=== PATIENT | male | born 1940 | race Caucasian/White ===

== ENCOUNTER 2023-03-30 13:18 | Outpatient (OUT) | payer OTHER, SELFPAY ==
--- NOTE | 2023-03-30 13:21 | VEIN_ITS ---
Patient: DELMAR ROSALES Exam Date: 03/30/2023 : 1940 Gender:M Ordering : DR REED MORTENSEN M.D. Admission #: [id number] Family : Order #: [id number] CLICK HERE TO VIEW EXAM RADIOLOGY REPORT PROCEDURE: FACILITY [facility] VEIN CENTER - OFFICE VISIT INITIAL COMPARISON: None. PROGRESS NOTES: [age] year old male who presents with a 3 year history of bulging dilated veins, discolored veins, leg swelling, pain, cramping, edema. The patient's right leg symptoms are worse than the left. There has been a progression of symptoms over the past 3 years. This increases with prolonged leg dependency. The patient describes an improvement with rest, elevation, exercise, and support stockings. The patient denies any signs and symptoms to suggest arterial ischemia. The patient describes a family history gastric ulcer, atrial dilation, supraventricular tachycardia. The patient has drinking and smoking history of: Occasional alcohol consumption. No tobacco use. Patient has a past medical history significant for asthma, prostate disease. The patient denies a history of deep venous thrombus or pulmonary embolus. See separate history and physical for medication list. No prior treatment for varicose or spider veins. Current use of compression stockings. After review of nurse notes, history and physical exam I discussed at length the pathophysiology of venous hypertension and possible treatments, therapies and strategies available. We discussed at length the importance of elevating the lower extremities above the level of the heart, increased physical activity and compression stocking use. Ultrasound venous reflux study performed today was discussed at length with the patient. The report demonstrates abnormally dilated and incompetent great saphenous veins bilaterally and right small saphenous vein along with multiple dilated and incompetent branch saphenous varicosities bilaterally. PHYSICAL EXAM: The right leg demonstrates several prominent varicosities, a few scattered spider veins, no ulceration, mild-moderate edema, no skin discoloration. The left leg demonstrates several varicosities, a few scattered spider veins, no ulceration, mild edema, no skin discoloration. Both thighs, legs and feet were symmetrically warm to the touch. Good posterior tibial and dorsalis pedis pulses were present bilaterally. VEIN/[facility] Facility [facility] IMPRESSION: 1. Bilateral lower extremity venous insufficiency 2. Bilateral lower extremity varicose veins 3. Bilateral lower extremity subcutaneous edema; right greater than left 4. No flow significant arterial disease 5. CEAP: C3, EP, AP, CA PLAN: 1. Continued use of compression stockings 2. Elevated legs and increased physical activity symptomatic relief 3. Endovenous laser ablation of right great saphenous, left great saphenous, right small saphenous veins. 4. Microfoam chemical ablation of incompetent branch saphenous varicosities bilaterally. Nurse notes, history and physical were reviewed and confirmed, see attached forms. The nurse was present throughout the physical exam and consultation Dictated by: Jeffrey Gee M.D. on 03/30/2023 at 15:17 Approved by: Jeffrey Gee M.D. on 03/30/2023 at 15:22
--- NOTE | 2023-03-30 13:22 | VEIN_ITS ---
Patient: DELMAR ROSALES Exam Date: 03/30/2023 : 1940 Gender:M Ordering : DR REED MORTENSEN M.D. Admission #: [id number] Family : Order #: [id number] CLICK HERE TO VIEW EXAM RADIOLOGY REPORT PROCEDURE: VC EXT VENOUS REFLUX ADDIE LMTD COMPARISON: None. INDICATIONS: I83.813 Pain due to varicose veins of bilateral legs TECHNIQUE: Duplex imaging of the lower extremity to assess the deep and superficial venous system for the presence of deep or superficial venous incompetence and to document the location and severity of disease. The study includes evaluation of the great saphenous vein (GSV), anterior accessory saphenous vein (AASV) and small saphenous vein (SSV). Patient scanned in reverse Trendelenburg and standing. FINDINGS: RIGHT LOWER EXTREMITY: Saphenofemoral Junction Reflux: Yes 10.4mm 3.7 sec GSV: Diam (mm) Reflux/ Time (sec) Proximal Thigh 8.0 Yes 1.6 Mid Thigh 11.3 Yes 1.5 Distal Thigh 9.4 Yes 2.6 Prox Calf 7.6 Yes 2.0 Mid Calf 4.3 Yes 1.0 Saphenopopliteal Junction Reflux: 6.6mm Yes 2.4 SSV: Proximal Calf 6.7 Yes 1.0 Mid Calf 3.4 Yes 1.0 AASV: Not present Proximal Thigh Mid Thigh Distal Thigh Thrombi: No acute or chronic thrombus visualized Compressibility: Normal Flow: Normal Preforator: Dist/med calf 2.6mm with 0s reflux. Dist/med calf 3.3mm with 1.2s reflux. Mid/med calf 3.2mm with 1.2s reflux. Tech Note: Incompetent SFJ, GSV, SPJ, and SSV. Patent varicose vein mid/ant calf 5.6mm with 1.2s reflux. Patent varicose vein dist/med thigh 7.0mm with 1.4s reflux. Patent varicose vein mid/med thigh 4.7mm with 1.2s reflux. Patent varicose vein prox/post calf 4.9mm with 1.5s reflux. LEFT LOWER EXTREMITY: Saphenofemoral Junction Reflux: Yes 7.6 mm 2.3 sec GSV: Diam (mm) Reflux/Time (sec) Proximal Thigh 5.5 Yes 2.2 Mid Thigh 5.5 Yes 1.5 Distal Thigh 5.3 Yes 1.2 Prox Calf 5.8 Yes 0.9 Mid Calf 4.7 Yes 1.6 Saphenopopliteal Junction Relux: 2.5 mm Yes 1.2 SSV: Proximal Calf 1.9 No Mid Calf 2.3 No AASV: Not present Proximal Thigh Mid Thigh Distal Thigh Thrombi: No acute or chronic thrombus visualized Compressibility: Normal Flow: Normal [employer]: Dist/med calf 4.3mm with 0.9s reflux. Proximal/med calf 5.0mm with 0s reflux. Mid/med thigh 3.1mm with 1.5s reflux. Tech Note: Incompetent SFJ and GSV. Patent varicose vein dist/med calf 6.4mm with 0.7s reflux. Patent varicose vein mid/med calf 1.9mm with 0.9s reflux. CONCLUSION: 1. Abnormally dilated and incompetent great saphenous vein bilaterally and right small saphenous vein. 2. Consultation for endovenous ablation is recommended. Dictated by: Jeffrey Gee M.D. on 03/30/2023 at 14:45 Approved by: Jeffrey Gee M.D. on 03/30/2023 at 14:47
== END 2023-03-30 13:19 | disposition home or self-care (01) ==
LOC: VC 13:20
PROVIDERS: PCP Radiology Diagnostic Radiology; Visit Provider Radiology Diagnostic Radiology
DX: I83.813 Varicose veins of bilateral lower extremities with pain (principal)
CPT/HCPCS: 93970; G0463

== ENCOUNTER 2023-04-28 13:34 | Outpatient (OUT) | payer OTHER, SELFPAY ==
--- NOTE | 2023-04-28 | VEIN_ITS ---
[address] [address] Patient Name: DELMAR ROSALES MRN: [id number] date: 1940 Sex: M Assigned Patient Location: Current Patient Location: Accession/Order Number: [id number] Exam Date: 04/28/2023 13:45 Report Date: 04/28/2023 15:08 At the request of: REED MORTENSEN Procedure: VC Endovenous Ablation 1VeinRT EXAMINATION: VC Endovenous Ablation 1VeinRT HISTORY: Pain due to varicose veins of bilateral legs I83.813 The risks and benefits of the procedure had been previously discussed, and were rediscussed at length. Informed written consent was obtained. Ramses Vazquez RN and Karen Woods RDMS assisted. Time out procedure was performed. The right lower extremity was prepared and draped in the usual sterile fashion to allow knee flexion in the sterile field. Duplex ultrasound probe was draped in a sterile cover, sterile transmission gel was used. Venous mapping was performed with the areas of dilation and large tributaries marked. The total length was 61 cm from the entry 3 cm above the ankle to 3 cm below the Saphenofemoral junction. The diameter of the greater saphenous vein ranged from 11.3 mm. A 30 gauge needle and 1% buffered lidocaine was used to anesthetize the entry site. A 4 mm incision was made with a scalpel and the saphenous vein was entered percutaneously under direct ultrasound guidance with a micropuncture set, a single stick was successful in gaining access. A micro-guide wire was inserted and the needle removed. A micro-set including a dilator was inserted over the microwire and the needle and dilator were removed. A guide wire was inserted through the micro-set and guided through the saphenous vein to the saphenofemoral junction. The dilator was removed and an introducer sheath was inserted over the wire until the end of the sheath entered the saphenofemoral junction. The dilator and wire were removed and the 600 micron fiber was introduced and placed and positioned so that it extended beyond the sheath and was 3 cm distal to the saphenofemoral or saphenopopliteal junction. Final position of the fiber was determined by ultrasound guidance and duplex imaging. Tumescent anesthetic was delivered by ultrasound guidance. 350 cc of fluid was delivered along the entire course of the saphenous vein. The solution consisted of 1000 cc of normal saline with 40 mL of 1% lidocaine and 20 mL of sodium bicarbonate. A final positioning check was made. The energy source was turned on by means of the foot pedal and the fiber and sheath were withdrawn. The total number of Joules delivered was 3737. The laser was active for 467 seconds under continuous pulse, average laser use of 8 J. Laser start time 2:50 PM, 04/28/2023. Laser stop time 2:58 PM, 04/28/2023. A duplex ultrasound revealed compressibility and flow at the saphenofemoral junction immediately after the procedure. Hemostasis at the access site was achieved. The skin incision of the saphenous vein was closed with a 4 x 4. A compression stocking was applied. Postop instructions were given. A follow up appointment was recommended and scheduled. The patient tolerated the procedure well. Electronically authenticated by: STEVE PARTIDA Date: 04/28/2023 15:08
[2023-04-28] MEDS: LIDOCAINE HCL 10 ML, SODIUM BICARBONATE 1 MEQ INJ (14:28)
[2023-04-28] MEDS: 0.9 % SODIUM CHLORIDE 500 ML, LIDOCAINE HCL 20 ML, SODIUM BICARBONATE 10 MEQ INJ (14:28)
== END 2023-04-28 13:35 | disposition home or self-care (01) ==
LOC: VC 13:34
PROVIDERS: PCP Radiology Diagnostic Radiology; Visit Provider Radiology Diagnostic Radiology
DX: I83.813 Varicose veins of bilateral lower extremities with pain (principal); I80.01 Phlebitis and thrombophlebitis of superficial vessels of right lower extremity
CPT/HCPCS: 36478

== ENCOUNTER 2023-05-05 14:14 | Outpatient (OUT) | payer OTHER, SELFPAY ==
--- NOTE | 2023-05-05 | VEIN_ITS ---
Patient: DELMAR ROSALES Exam Date: 05/05/2023 : 1940 Gender:M Ordering : DR SALBADOR OVERTON M.D. Admission #: [id number] Family : Order #: [id number] CLICK HERE TO VIEW EXAM RADIOLOGY REPORT PROCEDURE: [facility] EST L[facility]D VEIN CENTER - OFFICE VISIT FOLLOW UP COMPARISON: None. PROGRESS NOTES: The patient reports mild discomfort of the right leg following intravenous laser ablation of the right great saphenous vein. The patient did not require oral analgesics. The patient has worn compression stockings. The patient has followed our recommendations to walk 20-30 minutes once or twice per day since the procedure. Physical exam demonstrates mild bruising along the course of the entire great saphenous vein likely related to the procedure. No active ulceration. No areas of erythema or warmth to suggest cellulitis or thrombophlebitis Review of the ultrasound performed the same day demonstrates occlusive thrombus extending throughout the treated right great saphenous vein. The patient expressed a desire to proceed with treatment of the left great saphenous vein. VEIN/ Facility EST LMTD IMPRESSION: 1. Successful ablation of the right great saphenous vein 2. Persistent incompetent left great saphenous. PLAN: Intravenous ablation left great saphenous vein Nurse notes, history and physical were reviewed and confirmed, see attached forms. The nurse was present throughout the physical exam and consultation Dictated by: Salbador Overton MD on 05/05/2023 at 15:17 Approved by: Salbador Overton MD on 05/05/2023 at 16:03
--- NOTE | 2023-05-05 | VEIN_ITS ---
Patient: DELMAR ROSALES Exam Date: 05/05/2023 : 1940 Gender:M Ordering : DR SALBADOR OVERTON M.D. Admission #: [id number] Family : Order #: [id number] CLICK HERE TO VIEW EXAM RADIOLOGY REPORT PROCEDURE: VC EXT VENOUS RT LMTD COMPARISON: None. INDICATIONS: Phlebitis of superficial veins of rt lower extremity I80.01 TECHNIQUE: Lower extremity isidro scale and Duplex Doppler evaluation of the deep venous system from the inguinal ligament through the calf veins. FINDINGS: REGION: Right lower extremity. THROMBI: Negative for DVT. Heat induced thrombus visualized 1.3 cm from the saphenofemoral junction and is seen from proximal thigh GSV to distal lower leg GSV. COMPRESSIBILITY: Noncompressibility corresponding to thrombus FLOW: Absent flow corresponding to thrombus CONCLUSION: Post ablation occlusion of the right great saphenous vein with heat induced thrombus 1.3 cm from the saphenofemoral junction Dictated by: Salbador Overton MD on 05/05/2023 at 15:16 Approved by: Salbador Overton MD on 05/05/2023 at 15:17
== END 2023-05-05 14:15 | disposition home or self-care (01) ==
LOC: VC 14:14
PROVIDERS: PCP Radiology Diagnostic Radiology; Visit Provider Radiology Diagnostic Radiology
DX: I80.01 Phlebitis and thrombophlebitis of superficial vessels of right lower extremity (principal)
CPT/HCPCS: 93971; G0463

== ENCOUNTER 2023-05-26 13:00 | Outpatient (OUT) | payer OTHER, SELFPAY ==
--- NOTE | 2023-05-26 | VEIN_ITS ---
[address] [address] Patient Name: DELMAR ROSALES MRN: [id number] date: 1940 Sex: M Assigned Patient Location: Current Patient Location: Accession/Order Number: [id number] Exam Date: 05/26/2023 13:03 Report Date: 05/26/2023 14:25 At the request of: REED MORTENSEN Procedure: VC Endovenous Ablation 1VeinLT EXAMINATION: VC Endovenous Ablation 1Vein, left great saphenous vein HISTORY: Pain due to varicose veins of bilateral legs I83.813 COMPARISON: No relevant comparison available. TECHNIQUE: The risks and benefits of the procedure had been previously discussed, and were rediscussed at length. Informed written consent was obtained. Karen Connor and Ramses Vazquez assisted. Time out procedure was performed. The left lower extremity was prepared and draped in the usual sterile fashion to allow knee flexion in the sterile field. Duplex ultrasound probe was draped in a sterile cover, sterile transmission gel was used. Venous mapping was performed with the areas of dilation and large tributaries marked. The total length was 65 cm from the entry 8 cm above the medial malleolus to 3 cm below the saphenofemoral junction. The diameter of the greater saphenous vein ranged from 5-7 mm. A 30 gauge needle and 1% buffered lidocaine was used to anesthetize the entry site. A 4 mm incision was made with a scalpel and the saphenous vein was entered percutaneously under direct ultrasound guidance with a micropuncture set, a single stick was successful in gaining access. A micro-guide wire was inserted and the needle removed. A micro-set including a dilator was inserted over the microwire and the needle and dilator were removed. A 0.018 guide wire was inserted through the micro-set and threaded through the saphenous vein to the saphenofemoral junction. The dilator was removed and an introducer sheath was inserted over the wire until the end of the sheath entered the saphenofemoral junction. The dilator and wire were removed and the 600 micron fiber was introduced and placed and positioned so that it extended beyond the sheath and was 3 cm peripheral to the saphenofemoral femoral junction. Final position of the fiber was determined by ultrasound guidance and duplex imaging. Tumescent anesthetic was delivered by ultrasound guidance. 375 cc of fluid was delivered along the entire course of the saphenous vein. The solution consisted of 1000 cc of normal saline with 40 mL of 1% lidocaine and 20 mL of sodium bicarbonate. A final positioning check was made. The energy source was turned on by means of the foot pedal and the fiber and sheath were withdrawn. The total number of Joules delivered was 3090. The laser was active for 386 seconds under continuous pulse, average laser use of 8 J. Laser start time 1:53 PM 05/26/2023 . Laser stop time 2:01 PM 05/26/2023 . A duplex ultrasound revealed compressibility and flow at the saphenofemoral junction immediately after the procedure. Hemostasis at the access site was achieved. The skin incision of the saphenous vein was closed with a 4 x 4. A compression stocking was applied. Postop instructions were given. A follow up appointment was recommended and scheduled. The patient tolerated the procedure well and was discharged in good condition . VEIN/VC Endovenous Ablation 1VeinLT IMPRESSION: Technically successful endovenous laser ablation of the left great saphenous vein Electronically authenticated by: REED MORTENSEN Date: 05/26/2023 14:25
[2023-05-26] MEDS: 0.9 % SODIUM CHLORIDE 500 ML, LIDOCAINE HCL 20 ML, SODIUM BICARBONATE 10 MEQ INJ (13:07)
[2023-05-26] MEDS: LIDOCAINE HCL 10 ML, SODIUM BICARBONATE 1 MEQ INJ (13:08)
== END 2023-05-26 13:01 | disposition home or self-care (01) ==
LOC: VC 13:00
PROVIDERS: PCP Radiology Diagnostic Radiology; Visit Provider Radiology Diagnostic Radiology
DX: I83.813 Varicose veins of bilateral lower extremities with pain (principal)
CPT/HCPCS: 36478

== ENCOUNTER 2023-06-01 12:58 | Outpatient (OUT) | payer OTHER, SELFPAY ==
--- NOTE | 2023-06-01 12:59 | VEIN_ITS ---
Patient: DELMAR ROSALES Exam Date: 06/01/2023 : 1940 Gender:M Ordering : DR SALBADOR OVERTON M.D. Admission #: [id number] Family : Order #: [id number] CLICK HERE TO VIEW EXAM RADIOLOGY REPORT PROCEDURE: VC EXT VENOUS LT LIMITED COMPARISON: None. INDICATIONS: I80.02 Phlebitis of superficial veins of lt lower extremity TECHNIQUE: Lower extremity isidro scale and Duplex Doppler evaluation of the deep venous system from the inguinal ligament through the calf veins. FINDINGS: REGION: Left lower extremity. THROMBI: Negative for DVT. Heat induced thrombus visualized 3.1 cm from the SFJ. The heat induced thrombus extends from groin to distal calf. COMPRESSIBILITY: Non-compressible segments corresponding to thrombus. FLOW: Absent flow corresponding to thrombus CONCLUSION: Post ablation occlusion of the left great saphenous vein with heat induced thrombus 3.1 cm from the saphenofemoral junction Dictated by: Salbador Overton MD on 06/01/2023 at 13:19 Approved by: Salbador Overton MD on 06/01/2023 at 13:20
--- NOTE | 2023-06-01 12:59 | VEIN_ITS ---
Patient: DELMRA ROSALES Exam Date: 06/01/2023 : 1940 Gender:M Ordering : DR SALBADOR VOERTON M.D. Admission #: [id number] Family : Order #: [id number] CLICK HERE TO VIEW EXAM RADIOLOGY REPORT PROCEDURE: [facility] EST L[facility]D VEIN CENTER - OFFICE VISIT FOLLOW [facility] PROGRESS NOTES: The patient reports no significant pain or discomfort following intravenous laser ablation of the left great saphenous vein. The patient has worn his compression stocking. The patient did not require oral analgesics. The patient has followed our recommendations to walk 20-30 minutes once or twice per day since the procedure. Physical exam demonstrates 2 areas of bruising in the left medial thigh related to tumescence injection. The incision site is closed. No areas of erythema or warmth to suggest cellulitis or thrombophlebitis. No active ulceration. Thrombosed left great saphenous vein can be partially palpated. Review of the ultrasound performed the same day demonstrates occlusive thrombus extending throughout the treated left great saphenous vein with heat induced thrombus 3.1 cm from the saphenofemoral junction. The patient expressed a desire to proceed with treatment of incompetent right small saphenous vein. VEIN/[facility] EST LMTD IMPRESSION: 1. Successful ablation of the left great saphenous vein. 2. Persistent incompetent right great saphenous vein. PLAN: Intravenous laser ablation right small saphenous vein Nurse notes, history and physical were reviewed and confirmed, see attached forms. The nurse was present throughout the physical exam and consultation Dictated by: Salbador Overton MD on 06/01/2023 at 13:21 Approved by: Salbador Overton MD on 06/01/2023 at 13:31
== END 2023-06-01 12:59 | disposition home or self-care (01) ==
LOC: VC 12:59
PROVIDERS: PCP Radiology Diagnostic Radiology; Visit Provider Radiology Diagnostic Radiology
DX: I80.02 Phlebitis and thrombophlebitis of superficial vessels of left lower extremity (principal)
CPT/HCPCS: 93971; G0463

== ENCOUNTER 2023-06-24 13:48 | Outpatient (OUT) | payer OTHER, SELFPAY ==
--- NOTE | 2023-06-24 13:49 | VEIN_ITS ---
[address] [address] Patient Name: DELMAR ROSALES MRN: [id number] date: 1940 Sex: M Assigned Patient Location: Current Patient Location: Accession/Order Number: [id number] Exam Date: 06/24/2023 13:50 Report Date: 06/24/2023 14:50 At the request of: REED MORTENSEN Procedure: VC Endovenous Ablation 1VeinRT EXAMINATION: VC Endovenous Ablation 1Vein right small saphenous vein HISTORY: I83.813 Painful varicose veins of bilat lower extremities COMPARISON: No relevant comparison available. TECHNIQUE: The risks and benefits of the procedure had been previously discussed, and were rediscussed at length. Informed written consent was obtained. Taty Aleman and Ramses Vazquez assisted. Time out procedure was performed. The right lower extremity was prepared and draped in the usual sterile. Duplex ultrasound probe was draped in a sterile cover, sterile transmission gel was used. Venous mapping was performed with the areas of dilation and large tributaries marked. The total length was 22 cm from the entry 8 cm above the lateral malleolus to where the vein begins to dive deep. The diameter of the smallsaphenous vein ranged from 4-7 mm. A 30 gauge needle and 1% buffered lidocaine was used to anesthetize the entry site. A 4 mm incision was made with a scalpel and the saphenous vein was entered percutaneously under direct ultrasound guidance with a micropuncture set, a single stick was successful in gaining access. A micro-guide wire was inserted and the needle removed. A micro-set including a dilator was inserted over the microwire and the needle and dilator were removed. A 0.018 guide wire was inserted through the micro-set and threaded through the saphenous vein to the saphenofemoral junction. The dilator was removed and an introducer sheath was inserted over the wire until the end of the sheath entered the saphenofemoral junction. The dilator and wire were removed and the 600 micron fiber was introduced and placed and positioned so that it extended beyond the sheath and was 3 cm peripheral to the saphenofemoral femoral junction. Final position of the fiber was determined by ultrasound guidance and duplex imaging. Tumescent anesthetic was delivered by ultrasound guidance. 125 cc of fluid was delivered along the entire course of the saphenous vein. The solution consisted of 1000 cc of normal saline with 40 mL of 1% lidocaine and 20 mL of sodium bicarbonate. A final positioning check was made. The energy source was turned on by means of the foot pedal and the fiber and sheath were withdrawn. The total number of Joules delivered was 1011. The laser was active for 126 seconds under continuous pulse, average laser use of 8 J. Laser start time 2:36 AM 06/24/2023 . Laser stop time 2:39 AM 06/24/2023 . A duplex ultrasound revealed compressibility and flow at the saphenofemoral junction immediately after the procedure. Hemostasis at the access site was achieved. The skin incision of the saphenous vein was closed with a 4 x 4. A compression stocking was applied. Postop instructions were given. A follow up appointment was recommended and scheduled. The patient tolerated the procedure well and was discharged in good condition . VEIN/VC Endovenous Ablation 1VeinRT IMPRESSION: Technically successful endovenous laser ablation of the right small saphenous vein Electronically authenticated by: REED MORTENSEN Date: 06/24/2023 14:50
[2023-06-24] MEDS: LIDOCAINE HCL 1% 100 MG/10 ML MDV INJ (14:13)
[2023-06-24] MEDS: 0.9 % SODIUM CHLORIDE 500 ML, LIDOCAINE HCL 20 ML, SODIUM BICARBONATE 10 MEQ INJ (14:13)
== END 2023-06-24 13:49 | disposition home or self-care (01) ==
LOC: VC 13:48
PROVIDERS: PCP Radiology Diagnostic Radiology; Visit Provider Radiology Diagnostic Radiology
DX: I83.813 Varicose veins of bilateral lower extremities with pain (principal)
CPT/HCPCS: 36478

== ENCOUNTER 2023-06-30 12:49 | Outpatient (OUT) | payer OTHER, SELFPAY ==
--- NOTE | 2023-06-30 12:51 | VEIN_ITS ---
Patient: DELMAR ROSALES Exam Date: 06/30/2023 : 1940 Gender:M Ordering : DR REED MORTENSEN M.D. Admission #: [id number] Family : Order #: [id number] CLICK HERE TO VIEW EXAM RADIOLOGY REPORT PROCEDURE: [facility] EST L[facility]D VEIN CENTER - OFFICE VISIT FOLLOW UP [facility] PROGRESS NOTES: The patient reports improvement in leg symptoms. There has been interval reduction in varicosities. The patient has followed our recommendations to walk 20-30 minutes once or twice per day since the procedure. Physical exam demonstrates decrease in varicosities of the leg. A few scattered varicosities are identified along the legs bilaterally. Review of the ultrasound performed the same day demonstrates occlusive thrombus extending throughout the treated vein(s), see separate report, consistent with a successful ablation. No thrombus extending into or beyond the saphenofemoral junction. The patient expressed a desire to take a break in treatment of remaining varicosities. The patient was informed that treatment was a process and would require approximately 2 additional procedures/sessions when he is ready. VEIN/[facility] EST LMTD IMPRESSION: 1. Successful ablation of the right small saphenous vein(s). 2. Persistent scattered varicose veins and improved lower extremity symptoms. PLAN: Bilateral microfoam chemical ablation of remaining branch saphenous varicosities when patient is ready. Nurse notes, history and physical were reviewed and confirmed, see attached forms. The nurse was present throughout the physical exam and consultation Dictated by: Jeffrey Gee M.D. on 06/30/2023 at 13:48 Approved by: Jeffrey Gee M.D. on 06/30/2023 at 13:55
--- NOTE | 2023-06-30 12:52 | VEIN_ITS ---
Patient: DELMAR ROSALES Exam Date: 06/30/2023 : 1940 Gender:M Ordering : DR REED MORTENSEN M.D. Admission #: [id number] Family : Order #: [id number] CLICK HERE TO VIEW EXAM RADIOLOGY REPORT PROCEDURE: VC EXT VENOUS RT LMTD COMPARISON: VC EXT VENOUS RT LMTD, 05/05/2023. INDICATIONS: Phlebitis of superficial veins of rt lower extremity I80.01 TECHNIQUE: Lower extremity isidro scale and Duplex Doppler evaluation of the deep venous system from the inguinal ligament through the calf veins. FINDINGS: REGION: Right lower extremity. THROMBI: Negative for DVT. COMPRESSIBILITY: Non-compressible & partially compressible segments. FLOW: Areas of no flow. OTHER: Heat induced thrombus visualized 1.9 cm from the saphenopopliteal junction and extends to distal posterior leg. CONCLUSION: Successful post ablation occlusion of right small saphenous vein. Dictated by: Jeffrey Gee M.D. on 06/30/2023 at 15:30 Approved by: Jeffrey Gee M.D. on 06/30/2023 at 15:30
== END 2023-06-30 12:50 | disposition home or self-care (01) ==
LOC: VC 12:49
PROVIDERS: PCP Radiology Diagnostic Radiology; Visit Provider Radiology Diagnostic Radiology
DX: I80.01 Phlebitis and thrombophlebitis of superficial vessels of right lower extremity (principal)
CPT/HCPCS: 93971; G0463

== ENCOUNTER 2024-08-08 12:56 | Outpatient (OUT) | payer OTHER, SELFPAY ==
--- NOTE | 2024-08-08 07:15 | V.VEINS.HP ---
Vital Signs 08/08/24 13:12 Height 5 ft 11 in Weight 70.307 kg BMI 21.6 Respiration 16 Pulse 62 Pulse Source Monitor Pulse Oximetry (%) 99 Oxygen Delivery Method Room Air Varicose Veins Patient is an 84 year old male in this day with c/o bulging dilated veins to right lower leg.Patient is a past patient of ours whom was treated with EVLTs of bilateral GSV and right SSV secondary to a history of painful, edematous, bulging varicosities bilaterally. Patient continues to use bilateral leg knee high compression stockings, exercise, rest and elevate legs/feet. Jeffrey Meeks MD personally performed the services described in this documentation, as scribed by Ramses Vazquez RN in my presence and it is both accurate and complete. Ramses Meeks RN, am scribing for, and in the presence of, Dr. Jeffrey Gee and in the presence of the patient. . Review of Systems ROS Narrative Jeffrey Meeks MD personally performed the services described in this documentation, as scribed by Ramses Vazquez RN in my presence and it is both accurate and complete. Ramses Meeks RN, am scribing for, and in the presence of, Dr. Jeffrey Gee and in the presence of the patient. Status of ROS 10 or more systems reviewed and unremarkable except as noted in history and below Cardiovascular Reports: edema Integumentary/Breast Reports: itching [facility] Medical History (Updated 08/08/24 @ 07:20 by Ramses Vazquez) Asthma ?J45.909 - Unspecified asthma, uncomplicated (ICD-10) Prostate disease ?N42.9 - Disorder of prostate, unspecified (ICD-10) Mitral valve prolapse ?I34.1 - Nonrheumatic mitral (valve) prolapse (ICD-10) Varicose veins of bilateral lower extremities with pain ?I83.813 - Varicose veins of bilateral lower extremities with pain (ICD-10) Surgical History (Updated 08/08/24 @ 07:22 by Ramses Vazquez) History of prostate surgery ?Z98.890 - Other specified postprocedural states (ICD-10) H/O hernia repair ?Z98.890 - Other specified postprocedural states (ICD-10) ?Z87.19 - Personal history of other diseases of the digestive system (ICD-10) Status post laser ablation of incompetent vein ?Z98.890 - Other specified postprocedural states (ICD-10) Family History (Updated 08/08/24 @ 07:24 by Ramses Vazquez) Other Gastric ulcer Heart disease Social History (Updated 08/08/24 @ 07:22 by Ramses Vazquez) Within the past year, how often did you have a drink containing alcohol: monthly or less Smoking status: Never smoker Non-prescribed substance use: denies use Meds Home Medications and Allergies Home Medications ?Medication ?Instructions ?Recorded ?Confirmed ?Type lisinopril 2.5 mg tablet 2.5 mg PO DAILY 08/08/24 08/08/24 History metoprolol succinate 25 mg 25 mg PO DAILY 08/08/24 08/08/24 History tablet,extended release 24 hr Exam Narrative Exam Narrative: Jeffrey Meeks MD personally performed the services described in this documentation, as scribed by Ramses Vazquez RN in my presence and it is both accurate and complete. Ramses Meeks RN, am scribing for, and in the presence of, Dr. Jeffrey Gee and in the presence of the patient. Constitutional Documenting provider has reviewed patient's vital signs: yes Common normals: oriented x3 Cardio Peripheral pulses: posterior tibial pulses present and dorsalis pedis pulses present Extremity Common normals: normal capillary refill General: calf tenderness and edema Right lower extremity: lower leg Right lower leg: inspection and palpation Left lower extremity: lower leg Left lower leg: inspection and palpation Neuro Common normals: oriented x3 Results Additional Findings Additional findings: Bilateral leg reflux u/s reveals branch saphenous truncal tributary varicosities bilateraly. Jeffrey Meeks MD personally performed the services described in this documentation, as scribed by Ramses Vazquez RN in my presence and it is both accurate and complete. Ramses Meeks RN, am scribing for, and in the presence of, Dr. Jeffrey Gee and in the presence of the patient. Assessment and Plan Assessment and Plan (1) Varicose veins of bilateral lower extremities with pain: Plan Plan is for patient to continue use of bilateral leg knee high compression stockings, exercise, rest, and elevation bilateral legs/feet. F/u in future if symptoms reoccur. Jeffrey Meeks MD personally performed the services described in this documentation, as scribed by Ramses Vazquez RN in my presence and it is both accurate and complete. I, Ramses Vazquez RN, am scribing for, and in the presence of, Dr. Jeffrey Gee and in the presence of the patient.
--- NOTE | 2024-08-08 07:16 | W.VEIN ---
Discharge Plan Discharge Disposition: Home, Self-Care Print Language: Northern Irish
--- NOTE | 2024-08-08 12:58 | VEIN_ITS ---
Patient Name: DELMAR ROSALES MR#: [id number] : 1940 Exam Date: 08/08/2024 Ordering Doctor: DR REED MORTENSEN M.D. RADIOLOGY REPORT PROCEDURE: [facility] - OFFICE VISIT INITIAL COMPARISON: None. PROGRESS NOTES: [age] year old male who presents with a chronic history of varicose veins which have previously been treated. The patient's leg symptoms have not increased in severity, but patient wished to be evaluated to ensure there is not any significant progression of vein disease. The The patient describes a family history gastric ulcer heart disease. The patient has drinking and smoking history of : Occasional alcohol consumption; no tobacco use. Patient has a past medical history significant for varicose vein disease. The patient denies a history of deep venous thrombus or pulmonary embolus. See separate history and physical for medication list. Prior treatment for varicose or spider veins. Current continuous use of compression stockings. After review of nurse notes, history and physical exam I discussed at length the pathophysiology of venous hypertension and possible treatments, therapies and strategies available. We discussed at length the importance of elevating the lower extremities above the level of the heart, increased physical activity and compression stocking use. Ultrasound venous reflux study performed today was discussed at length with the patient. The report demonstrates a few mildly dilated and slightly incompetent branch saphenous varicosities. Previously treated right and left great saphenous veins, right small saphenous vein, and multiple branch saphenous varicosities remaining closed.. PHYSICAL EXAM: The right leg demonstrates no significant varicosities, scattered spider veins, no ulceration, no edema, no skin discoloration. The left leg demonstrates no significant varicosities, scattered spider veins, no ulceration, no edema, no skin discoloration. Both thighs, legs and feet were symmetrically warm to the touch. Good posterior tibial and dorsalis pedis pulses were present bilaterally. VEIN/VC Facility EST Comprehensive IMPRESSION: 1. No significant venous insufficiency in need of treatment at this time 2. A few small scattered lower extremity varicose veins 3. No significant lower extremity subcutaneous edema 4. No flow significant arterial disease 5. CEAP: C2, AP, , [place] PLAN: 1. Continued use of compression stockings 2. Elevated legs and increased physical activity symptomatic relief 3. No treatment needed at this time. Follow-up with veins center in future as needed. Nurse notes, history and physical were reviewed and confirmed, see attached forms. The nurse was present throughout the physical exam and consultation Dictated by: Jeffrey Gee M.D. on 08/08/2024 at 14:05 Approved by: Jeffrey Gee M.D. on 08/08/2024 at 14:10
--- NOTE | 2024-08-08 12:58 | VEIN_ITS ---
Patient Name: DELMAR ROSALES MR#: [id number] : 1940 Exam Date: 08/08/2024 Ordering Doctor: DR REED MORTENSEN M.D. RADIOLOGY REPORT PROCEDURE: VC EXT VENOUS REFLUX ADDIE LMTD COMPARISON: VC EXT VENOUS REFLUX ADDIE LMTD, 03/30/2023. INDICATIONS: I83.813 TECHNIQUE: Duplex imaging of the lower extremity to assess the deep and superficial venous system for the presence of deep or superficial venous incompetence and to document the location and severity of disease. The study includes evaluation of the great saphenous vein (GSV), anterior accessory saphenous vein (AASV) and small saphenous vein (SSV). Patient scanned in reverse Trendelenburg and standing. FINDINGS: RIGHT LOWER EXTREMITY: Saphenofemoral Junction Reflux: YesNo mm sec GSV: Diam (mm) Reflux/ Time (sec) Proximal Thigh N/A Mid Thigh N/A Distal Thigh N/A Prox Calf N/A Mid Calf N/A Saphenopopliteal Junction Reflux: mm N/A SSV: Proximal Calf N/A Mid Calf N/A AASV: Not present Proximal Thigh Mid Thigh Distal Thigh Thrombi: No acute or chronic thrombus visualized Compressibility: Normal Flow: Normal Preforator: Dist/med calf 4.4mm with 1.0s reflux. Mid/med calf 2.6mm with 1.2s reflux. Tech Note: GSV and SSV were previously treated with EVLT. Patent varicose vein dist/med thigh 6.3mm with 1.5s reflux. Patent varicose vein mid/med calf 4.1mm with 1.3s reflux. LEFT LOWER EXTREMITY: Saphenofemoral Junction Reflux: No mm sec GSV: Diam (mm) Reflux/Time (sec) Proximal Thigh N/A Mid Thigh N/A Distal Thigh N/A Prox Calf N/A Mid Calf N/A Saphenopopliteal Junction Relux: 3.8 mm Yes 1.0 SSV: Proximal Calf 3.7 No Mid Calf 1.8 No AASV: Not present Proximal Thigh Mid Thigh Distal Thigh Thrombi: No acute or chronic thrombus visualized Compressibility: Normal Flow: Normal Coffin Maker: Mid/med calf 3.7mm with 1.5s reflux. Tech Note: GSV previously treated with EVLT. Patent varicose vein dist/med calf 4.0mm with 1.6s reflux. Patent varicose mid/med thigh 2.8mm with 2.1s reflux. CONCLUSION: 1. A few mildly dilated and mildly incompetent branch saphenous varicosities bilaterally. Dictated by: Jeffrey Gee M.D. on 08/08/2024 at 13:48 Approved by: Jeffrey Gee M.D. on 08/08/2024 at 14:05
[2024-08-08 13:12] VITALS: PULSE 62; O2SAT 99; BMI 21.6
--- NOTE | 2024-08-08 13:56 | P.DS_ITS ---
Discharge Plan Discharge Disposition: Home, Self-Care Plan of Treatment: f/u in future if symptoms reoccur Print Language: Ukrainian Discharge Date/Time: 08/08/24 13:56
== END 2024-08-08 13:56 | disposition home or self-care (01) ==
LOC: VC 12:56
PROVIDERS: PCP Radiology Diagnostic Radiology; Visit Provider Radiology Diagnostic Radiology
DX: I83.813 Varicose veins of bilateral lower extremities with pain (principal)
CPT/HCPCS: 93970; G0463